=== PATIENT | male | born 1975 | race Caucasian/White ===

== ENCOUNTER 2024-04-27 21:15 | Emergency (ER) | payer BC ==
[2024-04-27 22:13] LABS: HEMOGLOBIN 12.5 g/dL (14.0-18.0); MEAN CORPUSCULAR HEMOGLOBIN 29.6 pg (28.0-32.0); MEAN CORPUSCULAR HGB CONC 32.9 g/dL (32.0-36.0); PLATELET COUNT,PLT 373 K/uL (150-400); RED BLOOD CELL COUNT 4.22 M/uL (4.52-5.90)
[2024-04-27 22:26] LABS: EOSINOPHILS ABSOLUTE MAN 0.14 K/uL (0.00-0.45); EOSINOPHILS PERCENT MAN 1 % (0-6); LYMPHOCYTES ABSOLUTE MAN 3.31 K/uL (1.00-4.80); LYMPHOCYTES PERCENT MAN 23 % (24-44); MONOCYTES ABSOLUTE MAN 1.73 K/uL (0.00-0.80); MONOCYTES PERCENT MAN 12 % (0-8); SEG NEUTROPHILS ABSOLUTE MAN 9.22 K/uL (1.80-7.70); SEG NEUTROPHILS PERCENT MAN 64 % (41-71)
[2024-04-27 22:54] LABS: A/G RATIO 0.7 (0.9-1.6); ALBUMIN 2.2 g/dL (3.4-5.0); BILIRUBIN TOTAL 0.1 mg/dL (0.2-1.0); CALCIUM 6.9 mg/dL (8.5-10.1); CARBON DIOXIDE,CO2 26.5 mmol/L (21.0-32.0); CREATININE 3.5 mg/dL (0.8-1.3); EST CRCL DRUG DOSING (CG) 25.51 mL/min; POTASSIUM,K 3.9 mmol/L (3.5-5.1); PROTEIN TOTAL,TP 5.4 g/dL (6.4-8.2)
[2024-04-27] MEDS: Potassium Chloride 10% 20 MEQ/15 ML Soln 15 ML UD Cup PO ONE (23:40)
[2024-04-27] MEDS: Furosemide 40 MG/4 ML VIAL IVPUSH ONE (23:42)
[2024-04-27] MEDS: Calcium Gluc in NaCl, ISO-OSM 1,000 MG in Premix Bag 1 BAG IV ONE (23:45)
== END 2024-04-28 00:32 | disposition home or self-care (01) ==
LOC: MW.ED 21:15
DX: N17.9 Acute kidney failure, unspecified (principal); I12.9 Hypertensive chronic kidney disease with stage 1 through stage 4 chronic kidney disease, or unspecified chronic kidney disease; N18.9 Chronic kidney disease, unspecified; Z79.899 Other long term (current) drug therapy
CPT/HCPCS: 36415; 71045; 80053; 83880; 84484; 85025; 93005; 96365; 96375; 99285; A9270; J0613; J1940; 93010; 99284